=== PATIENT | male | born 1950 | race Asian ===

== ENCOUNTER 2016-10-29 20:56 | Observation (INO) | payer OTHER ==
[2016-10-29] MEDS ORDERED: SODIUM CHLORIDE 500 ML IV STA ×2 (21:37→23:50)
--- NOTE | 2016-10-29 21:58 | PDOC ---
History of Present Illness - History of Present Illness Initial Comments: 10/29/16 21:55 66M with history of prostate cancer, s/p surgery, chemo and radiation, with mets to lungs here today via EMS complaining of syncope. The patient was on the couch when he felt diaphoretic and nauseated before collapsing. EMS was called. Patient quickly returned to baseline. He did not have any tonic-clonic movements or tongue biting. He denies chest pain and shortness of breath. He denies recent travel, leg pain and hemoptysis. He does complain of constipation , with the last bowel movement being 3 days ago. His reports decreased PO intake. <Raymond Jones - Last Filed: 10/30/16 00:05> <Laya Gardiner - Last Filed: 10/30/16 04:14> - General Chief Complaint: Syncope/Near Syncope Stated Complaint: SYNCOPE Time Seen by Provider: 10/29/16 21:06 Past History - Past Medical History Anemia: No Asthma: No Cancer: Yes (prostate w/ METS to lungs) Cardiac Disorders: No CVA: No COPD: No CHF: No Dementia: No Diabetes: No GI Disorders: No Disorders: No HTN: No Hypercholesterolemia: No Liver Disease: No Seizures: No Thyroid Disease: No - Surgical History Orthopedic Surgery: No - Psycho/Social/Smoking Cessation Hx Suicidal Ideation: No Smoking History: Former smoker Have you smoked in the past 12 months: No If you are a former smoker, when did you quit?: 10yrs ago Information on smoking cessation initiated: No Hx Alcohol Use: No Drug/Substance Use Hx: No Substance Use Type: None <Raymond Jones - Last Filed: 10/30/16 00:05> <Laya Gardiner - Last Filed: 10/30/16 04:14> - Past Medical History Allergies/Adverse Reactions: Allergies Allergy/AdvReac Type Severity Reaction Status Date / Time No Known Drug Allergies Allergy Verified 01/07/12 07:26 Home Medications: Ambulatory Orders Chlorpromazine [Thorazine -] 25 mg PO BID PRN 10/29/16 Cisplatin [Platinol -] 100 mg IV ASDIR 10/29/16 Etoposide 10 mg IV ASDIR 10/29/16 Etoposide - 50 mg PO DAILY 10/29/16 Ondansetron HCl [Zofran] 8 mg PO QID PRN 10/29/16 Review of Systems - Review of Systems Comments:: 10/29/16 21:59 GENERAL/CONSTITUTIONAL: No fever or chills. No weakness. HEAD, EYES, EARS, NOSE AND THROAT: No change in vision. No ear pain or discharge. No sore throat. CARDIOVASCULAR: No chest pain or shortness of breath RESPIRATORY: No cough, wheezing, or hemoptysis. GASTROINTESTINAL: Positive for constipation and nausea GENITOURINARY: Positive for incontinence after prostate surgery. Negative for dysuria SKIN: No rash NEUROLOGIC: No headache, or change in strength/sensation. HEMATOLOGIC/LYMPHATIC: No anemia, easy bleeding, or history of blood clots. ALLERGIC/IMMUNOLOGIC: No hives or skin allergy. <Raymond Jones - Last Filed: 10/30/16 00:05> *Physical Exam - Vital Signs Last Vital Signs Temp Pulse Resp BP Pulse Ox 97.5 F L 90 18 136/80 99 10/29/16 21:05 10/29/16 21:05 10/29/16 21:05 10/29/16 21:05 10/29/16 21:05 - Physical Exam Comments: 10/29/16 22:00 GENERAL: Awake, alert, and fully oriented, in no acute distress HEAD: No signs of trauma, normocephalic, atraumatic EYES: PERRLA, EOMI, sclera anicteric, conjunctiva clear ENT: Auricles normal inspection, hearing grossly normal, nares patent, oropharynx clear without exudates. Dry mucosa LUNGS: No distress, speaks full sentences, clear to auscultation bilaterally HEART: Regular rate and rhythm, normal S1 and S2, no murmurs, rubs or gallops, peripheral pulses normal and equal bilaterally. ABDOMEN: Soft, nontender, normoactive bowel sounds. No guarding, no rebound. No masses EXTREMITIES: Normal inspection, Normal range of motion, no edema. No clubbing or cyanosis. NEUROLOGICAL: Cranial nerves II through XII grossly intact. Normal speech, no focal sensorimotor deficits SKIN: Warm, Dry, no rashes or lesions noted. <Raymond Jones - Last Filed: 10/30/16 00:05> - Vital Signs Last Vital Signs Temp Pulse Resp BP Pulse Ox 97.5 F L 95 H 18 138/80 99 10/29/16 21:05 10/29/16 22:21 10/29/16 21:05 10/29/16 22:01 10/29/16 22:21 <Laya Gardiner - Last Filed: 10/30/16 04:14> ED Treatment Course - LABORATORY CBC & Chemistry Diagram: 10/29/16 21:53 10/29/16 21:53 - RADIOLOGY Radiology Studies Ordered: Category Date Time Status CHEST CTA [CT] Stat CT Scan 10/29/16 21:37 Ordered CHEST X-RAY PORTABLE* [RAD] Stat Radiology 10/29/16 21:37 Ordered <Raymond Jones - Last Filed: 10/30/16 00:05> - LABORATORY CBC & Chemistry Diagram: 10/29/16 21:53 10/29/16 21:53 - ADDITIONAL ORDERS Additional order review: Laboratory Results 10/29/16 10/29/16 10/29/16 23:35 22:16 21:53 INR 1.06 Sodium 133 L Potassium 3.6 Chloride 95 L D Carbon Dioxide 27 Anion Gap 11 BUN 20 H D Creatinine 0.8 Creat Clearance w eGFR > 60 Random Glucose 116 H D Calcium 8.3 L Magnesium 2.0 Total Bilirubin 0.4 AST 16 ALT 23 Alkaline Phosphatase 93 Creatine Kinase 31 L Troponin I < 0.02 Total Protein 6.7 Albumin 3.2 L Urine Color Lt. yellow Urine Appearance Clear Urine pH 7.5 Urine Protein Negative Urine Glucose (UA) Negative Urine Ketones Negative Urine Blood Negative Urine Nitrite Negative Urine Bilirubin Negative Urine Urobilinogen 0.2 Ur Leukocyte Esterase Negative 10/29/16 21:53 RBC 4.09 MCV 90.9 MCHC 34.4 RDW 13.5 MPV 9.3 Neutrophils % Y Lymphocytes % Y - Medications Given in the ED: ED Medications Discontinued Medications Generic Name Dose Route Start Last Admin Trade Name Freq PRN Reason Stop Dose Admin Sodium Chloride 500 mls @ 500 mls/hr 10/29/16 21:37 10/29/16 22:01 Normal Saline - IV 10/29/16 22:36 500 mls/hr ASDIR STA Administration <Laya Gardiner - Last Filed: 10/30/16 04:14> Medical Decision Making - Medical Decision Making 10/29/16 22:01 Patient is a 66M with history of prostate cancer s/p chemo and radiation here today complaining of syncope. Vital signs stable, HR in 90s. Differential diagnosis includes, but is not limited to: PE, ACS, arrhythmia, dehydration. Will evaluate with CBC, CMP, CXR, trop, CTA, EKG. EKG shows QT= 485, left axis, no st elevations, normal sinus rhythm, HR 95. T wave inversions in aVL 10/29/16 22:22 CBC shows WBC of 25. CXR shows no acute cardiopulmonary process. Workup broadened with UA, UC and BC. 10/29/16 23:56 CTA Chest No PE. Extensive confluent mediastinal lymphadenopathy is identified. There is less prominent confluent right hilar lymphadenopathy. Due to mediastinal lymph node enlargement there is moderate to marked partial effacement of the left brachiocephalic vein adjacent to the junction with the superior vena cava as well as moderate to marked partial effacement of the upper half of the superior vena cava. Patient discussed with Dr Duran. Patient is taking neulasta, which explains the leukocytosis. Feels comfortable with discharge if SC, PE, PNA, and UTI ruled out. Trop neg. 10/29/16 23:58 CMP unremarkable: Laboratory Tests 10/29/16 21:53 Sodium 133 L Potassium 3.6 Chloride 95 L D Carbon Dioxide 27 Anion Gap 11 BUN 20 H D Creatinine 0.8 Creat Clearance w eGFR > 60 Random Glucose 116 H D Calcium 8.3 L Magnesium 2.0 Total Bilirubin 0.4 AST 16 ALT 23 Alkaline Phosphatase 93 Creatine Kinase 31 L Troponin I < 0.02 Total Protein 6.7 Albumin 3.2 L UA, lactate, pending. If normal anticipate discharge with follow up. Possible causes of syncope include, but are not limited to dehydration, and major vessel compression. Given additional 1L NS. Signed out to Dr Gardiner. <Raymond Jones - Last Filed: 10/30/16 00:05> - Medical Decision Making 10/30/16 02:33 Had been anticipating DC home, as no source of infection, leukocytosis was explained, and patient was appearing better. Syncope was considered likely possible to lymph node obstruction of flow through SVC. However, repeat lactate after 1.5L IV NSS increased. D/w Dr. Mcgowan, will place on observation. <Laya Gardiner - Last Filed: 10/30/16 04:14> *DC/Admit/Observation/Transfer <Raymond Jones - Last Filed: 10/30/16 00:05> - Discharge Dispostion Admit: Yes <Laya Gardiner - Last Filed: 10/30/16 04:14> Diagnosis at time of Disposition: Lactate blood increase, Dehydration Syncope Qualifiers: Syncope type: unspecified Qualified Code(s): R55 - Syncope and collapse - Discharge Dispostion Condition at time of disposition: Stable
--- NOTE | 2016-10-29 22:03 | PDOC ---
Attending Attestation - Resident Resident Name: RamanaRaymond berry - ED Attending Attestation I have performed the following: I have examined & evaluated the patient, The case was reviewed & discussed with the resident, I agree w/resident's findings & plan, Exceptions are as noted - HPI HPI: 66 yo M history prostate CA with mets to lung and lymph nodes presents with syncopal event. He states that he felt lightheaded, nauseated, and sweaty right beforehand, but denies cp, SOB. No recent leg swelling. He has had dec PO intake recently. No fever, chills. He complains of recent constipation. He is not taking any opioid pain medications. - Physicial Exam PE: GENERAL: Awake, alert, and fully oriented, in no acute distress HEAD: No signs of trauma EYES: PERRLA, EOMI, sclera anicteric, conjunctiva clear ENT: Auricles normal inspection, hearing grossly normal, nares patent, oropharynx clear without exudates. Dry mucosa NECK: Normal ROM, supple, no lymphadenopathy, JVD, or masses LUNGS: Breath sounds equal, clear to auscultation bilaterally. No wheezes, and no crackles HEART: Regular rate and rhythm, normal S1 and S2, no murmurs, rubs or gallops ABDOMEN: Soft, nontender, normoactive bowel sounds. No guarding, no rebound. No masses EXTREMITIES: Normal range of motion, no edema. No clubbing or cyanosis. No cords, erythema, or tenderness NEUROLOGICAL: Cranial nerves II through XII grossly intact. Normal speech. Motor and sensation intact. SKIN: Warm, Dry, normal turgor, no rashes or lesions noted. - Medical Decision Making See MDM in resident note for details.
[2016-10-29 22:04] LABS: MCH 31.2 pg (25.7-33.7); MCHC 34.4 g/dl (32.0-35.9); MEAN CELL VOLUME 90.9 fl (80-96); MEAN PLT VOLUME 9.3 fl (7.5-11.1); PLATELET COUNT 218 K/MM3 (134-434); RDW 13.5 % (11.9-15.9); WHITE BLOOD COUNT 25.2 K/mm3 (4.0-10.0)
[2016-10-29 22:44] LABS: ALBUMIN 3.2 g/dl (3.4-5.0); ANION GAP 11 (8-16); BILIRUBIN,TOTAL 0.4 mg/dL (0.2-1.0); CALCIUM 8.3 mg/dL (8.5-10.1); CO2 27 mmol/L (21-32); CREATININE 0.8 mg/dL (0.7-1.3); GLUCOSE,RANDOM 116 mg/dL (74-106); SGOT/AST 16 U/L (15-37); SGPT/ALT 23 U/L (12-78); TOT PROT 6.7 g/dl (6.4-8.2)
[2016-10-29 22:46] LABS: ALK PHOS 93 U/L (45-117); CPK 31 IU/L (39-308); TROPONIN I < 0.02 ng/ml (0.00-0.05)
[2016-10-29 23:17] LABS: PLATELET ESTIMATE ADEQUATE (NORMAL)
[2016-10-29] MEDS ORDERED: MAGNESIUM CITRATE 300 ML BOTTLE PO ONE (23:49)
[2016-10-29] MEDS ORDERED: SODIUM CHLORIDE 1,000 ML IV STA (23:51)
[2016-10-30 00:02] LABS: PH,URINE 7.5 (5.0-8.0); URINE APPEARANCE CLEAR; URINE BILIRUBIN NEGATIVE (NEGATIVE); URINE BLOOD NEGATIVE (NEGATIVE); URINE COLOR LT. YELLOW; URINE GLUCOSE (UA) NEGATIVE (NEGATIVE); URINE KETONE NEGATIVE (NEGATIVE); URINE LEUK ESTERASE NEGATIVE (NEGATIVE); URINE NITRITE NEGATIVE (NEGATIVE); URINE PROTEIN NEGATIVE (NEGATIVE); URINE UROBILINOGEN 0.2 mg/dL (0.2-1.0)
[2016-10-30 00:06] LABS: INR 1.06 (0.82-1.09); PROTHROMBIN TIME (PATIENT) 11.7 SEC (9.98-11.88)
[2016-10-30] MEDS ORDERED: MAGNESIUM CITRATE 300 ML BOTTLE ONE (00:40)
[2016-10-30] MEDS ORDERED: SODIUM CHLORIDE 1,000 ML IV SCH (02:45)
[2016-10-30] MEDS ORDERED: ONDANSETRON 8 MG TABLET (FP) PO PRN (07:44)
[2016-10-30 08:54] LABS: MCH 30.7 pg (25.7-33.7); MEAN CELL VOLUME 90.4 fl (80-96); MEAN PLT VOLUME 9.6 fl (7.5-11.1); PLATELET COUNT 206 K/MM3 (134-434); RDW 13.3 % (11.9-15.9)
[2016-10-30 09:06] LABS: WHITE BLOOD COUNT 30.6 K/mm3 (4.0-10.0)
[2016-10-30 09:52] LABS: ALBUMIN 3.1 g/dl (3.4-5.0); ANION GAP 10 (8-16); BILIRUBIN,TOTAL 0.6 mg/dL (0.2-1.0); CALCIUM 8.4 mg/dL (8.5-10.1); CO2 25 mmol/L (21-32); CREATININE 0.7 mg/dL (0.7-1.3); GLUCOSE,RANDOM 111 mg/dL (74-106); MAGNESIUM 2.2 mg/dL (1.8-2.4); SGOT/AST 16 U/L (15-37); SGPT/ALT 21 U/L (12-78); TOT PROT 6.4 g/dl (6.4-8.2)
[2016-10-30 09:53] LABS: ALK PHOS 101 U/L (45-117); TROPONIN I < 0.02 ng/ml (0.00-0.05)
[2016-10-30] MEDS ORDERED: ENOXAPARIN NA (PORCINE) 40 MG/0.4 ML DISP.SYRIN SQ SCH (10:00)
[2016-10-30] MEDS ORDERED: ETOPOSIDE PO SCH (10:00)
[2016-10-30] MEDS ORDERED: DEXTROSE 5%-0.45% SALINE 1,000 ML IV ONE (10:19)
[2016-10-30 11:22] LABS: PLATELET ESTIMATE ADEQUATE (NORMAL); TOTAL CELLS COUNTED 100
--- NOTE | 2016-10-30 11:43 | EKG ---
Test Reason : Blood Pressure : / mmHG Vent. Rate : 095 BPM Atrial Rate : 095 BPM P-R Int : 144 ms QRS Dur : 084 ms QT Int : 386 ms P-R-T Axes : 075 -32 064 degrees QTc Int : 485 ms NORMAL SINUS RHYTHM POSSIBLE LEFT ATRIAL ENLARGEMENT LEFT AXIS DEVIATION RSR' PROLONGED QT ABNORMAL ECG WHEN COMPARED WITH ECG OF 28-JAN-2004 22:30, QT HAS LENGTHENED Confirmed by SHEIKH OMER, CHARLOTTE ([id number]) on 10/30/2016 11:43:38 AM Referred By: Confirmed By:CHARLOTTE RENAE MD
--- NOTE | 2016-10-30 12:01 | EKG ---
Test Reason : Blood Pressure : / mmHG Vent. Rate : 093 BPM Atrial Rate : 093 BPM P-R Int : 136 ms QRS Dur : 078 ms QT Int : 384 ms P-R-T Axes : 071 -25 062 degrees QTc Int : 477 ms NORMAL SINUS RHYTHM LEFT ATRIAL ENLARGEMENT WHEN COMPARED WITH ECG OF 29-OCT-2016 21:11, NO SIGNIFICANT CHANGE WAS FOUND Confirmed by CHARLOTTE RENAE MD ([id number]) on 10/30/2016 12:00:45 PM Referred By: Confirmed By:CHARLOTTE RENAE MD
[2016-10-30 12:16] LABS: PHOSPHOROUS 2.1 mg/dL (2.5-4.9); URIC ACID 3.3 mg/dL (2.6-7.2)
[2016-10-30 15:22] VITALS: BMI 23.6
[2016-10-30] MEDS: DEXTROSE 5%-0.45% SALINE 1,000 ML IV SCH (17:13)
[2016-10-30] MEDS: THIAMINE HCL 100 MG TABLET (FP) PO SCH (18:36)
[2016-10-31] MEDS: DEXTROSE 5%-0.45% SALINE 1,000 ML IV SCH (04:22)
[2016-10-31 08:31] LABS: EOSINOPHIL 0.5 % (0-4.5); MCH 30.9 pg (25.7-33.7); MCHC 33.9 g/dl (32.0-35.9); MEAN CELL VOLUME 91.3 fl (80-96); MEAN PLT VOLUME 9.7 fl (7.5-11.1); NEUTROPHILS 97.2 % (42.8-82.8); PLATELET COUNT 187 K/MM3 (134-434); RDW 13.2 % (11.9-15.9); WHITE BLOOD COUNT 25.9 K/mm3 (4.0-10.0)
[2016-10-31 09:17] LABS: ALBUMIN 3.1 g/dl (3.4-5.0); ALK PHOS 135 U/L (45-117); ANION GAP 13 (8-16); BILIRUBIN,TOTAL 0.8 mg/dL (0.2-1.0); CALCIUM 8.4 mg/dL (8.5-10.1); CO2 23 mmol/L (21-32); CREATININE 0.6 mg/dL (0.7-1.3); GLUCOSE,RANDOM 143 mg/dL (74-106); SGOT/AST 20 U/L (15-37); SGPT/ALT 21 U/L (12-78); TOT PROT 6.5 g/dl (6.4-8.2)
[2016-10-31] MEDS: THIAMINE HCL 100 MG TABLET (FP) PO SCH (09:31)
--- NOTE | 2016-10-31 11:36 | HP ---
Admitting History and Physical - Primary Care Physician PCP: Chucho Mcgowan - Admission Chief Complaint: Passed out History of Present Illness: 66 yrs old man H/O CA prostate recurrence r with mets in Lung s and Hilar Lymphadenopathy, patient received Ist Cycle of chemotherapy on Tuesday, Tuesday and , , on Tuesday received Neupogen, patient has been having poor PO intake with nausea, GERD symptoms and Hiccoughs, on Tuesday night felt dizzy, nauseated and passed out for few seconds witnesses by the , no seizures activity, no bowel bladder incontinence, no chest pain SOB or Palpitation, before or after the episode, BIB to Ed for evaluation, patient was found clinically dehydrated with elevated BUN Creatnine admitted for close observation, As per patient patient had extensive Cardiac w/u fw wks ago underwent negative NST and ECHO, on Hospitalization CT chest is -ve for PE, no c/o dysuria, fever, chills, cough or worsening SOB History Source: Patient Limitations to Obtaining History: No Limitations - Past Medical History Heme/Onc: Yes: Cancer (Prostate), Current Chemotherapy - Past Surgical History Past Surgical History: Yes: Prostatectomy - Smoking History Smoking history: Former smoker Have you smoked in the past 12 months: No If you are a former smoker, when did you quit?: 10yrs ago - Alcohol/Substance Use Hx Alcohol Use: No - Social History ADL: Independent History of Recent Travel: No Home Medications - Allergies Allergies/Adverse Reactions: Allergies Allergy/AdvReac Type Severity Reaction Status Date / Time No Known Drug Allergies Allergy Verified 10/30/16 06:52 - Home Medications Home Medications: Ambulatory Orders Chlorpromazine [Thorazine -] 25 mg PO BID PRN 10/29/16 Ondansetron HCl [Zofran] 8 mg PO QID PRN 10/29/16 Metoclopramide HCl [Reglan -] 10 mg PO TIDAC #45 tablet 10/31/16 Pantoprazole Sodium [Protonix -] 40 mg PO DAILY #30 cap 10/31/16 Thiamine HCl [Vitamin B1 -] 100 mg PO DAILY #100 tablet 10/31/16 Family Disease History - Family Disease History Family Disease History: Heart Disease: Mother (HTN) Review of Systems - Review of Systems Constitutional: reports: Loss of Appetite, Malaise, Unintentional Wgt. Loss Eyes: reports: No Symptoms HENT: reports: No Symptoms Neck: reports: No Symptoms Cardiovascular: denies: Chest Pain, Edema, Palpitations Respiratory: reports: No Symptoms. denies: Cough, Exercise Intolerance Gastrointestinal: reports: Bloating, Constipation, Nausea Genitourinary: reports: No Symptoms. denies: Burning, Discharge Musculoskeletal: reports: No Symptoms. denies: Back Pain Neurological: reports: No Symptoms, Change in LOC Endocrine: denies: Excessive Sweating, Flushing Hematology/Lymphatic: denies: Easily Bruised, Excessive Bleeding Psychiatric: reports: No Symptoms Physical Examination Vital Signs: Vital Signs Temperature 98.0 F 10/30/16 09:00 Pulse Rate 98 H 10/30/16 09:00 Respiratory Rate 20 10/30/16 09:00 Blood Pressure 150/78 10/30/16 09:00 O2 Sat by Pulse Oximetry (%) 100 10/30/16 10:20 Elderly man sick looking looks anxious, not in acute distress HEENT: Mm moist, no anemia, PERRLA EOMI NECK; No JVd No Bruit CHEST: CTA B/L CVS: s1S2 R no murmur ABD: No distention mild epigastric tenderness BS + EXT: No yao afeet, no calf tenderness 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; AOx3 non focal Labs: CBC, BMP 10/30/16 07:38 10/30/16 07:38 Imaging - Results Cat Scan: Report Reviewed (Scar shows B/L Hilar adnopathy with intersitial dises no PE) EKG: Report Reviewed (NSR at [address] changes) Problem List - Problems (1) Dehydration Assessment/Plan: Iv Hydration F/Iu BMP Code(s): E86.0 - DEHYDRATION (2) Lactate blood increase Assessment/Plan: Due to malignancy no AG no clinical sign of infection F/UCultures Code(s): R79.89 - OTHER SPECIFIED ABNORMAL FINDINGS OF BLOOD CHEMISTRY (3) Syncope Assessment/Plan: Due to dehydration and mailise, normal EKG, no cardiac symptoms -ve Trop recent NST and ECHO are normal, educated Hydration and postural training. Code(s): R55 - SYNCOPE AND COLLAPSE Qualifiers: Syncope type: unspecified Qualified Code(s): R55 - Syncope and collapse (4) GERD (gastroesophageal reflux disease) Assessment/Plan: Add PPI and Metclopramide Code(s): K21.9 - GASTRO-ESOPHAGEAL REFLUX DISEASE WITHOUT ESOPHAGITIS Qualifiers: Esophagitis presence: with esophagitis Qualified Code(s): K21.0 - Gastro-esophageal reflux disease with esophagitis
--- NOTE | 2016-10-31 11:46 | DS ---
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; AOx3 non focal Constitutional: Yes: Well Nourished, No Distress, Calm Eyes: Yes: WNL, Conjunctiva Clear, EOM Intact HENT: Yes: WNL, Atraumatic, Normocephalic Neck: Yes: WNL, Supple, Trachea Midline Cardiovascular: Yes: WNL, Regular Rate and Rhythm Respiratory: Yes: WNL, Regular, CTA Bilaterally Gastrointestinal: Yes: WNL, Normal Bowel Sounds Musculoskeletal: Yes: WNL Extremities: Yes: WNL Edema: No Integumentary: Yes: WNL Neurological: Yes: WNL, Alert, Oriented ...Motor Strength: WNL Psychiatric: Yes: WNL Labs: CBC, BMP 10/31/16 07:38 10/31/16 07:38 Discharge Summary Reason For Visit: SYNCOPE,INCREASED LACTIC ACID LEVEL Current Active Problems Dehydration (Acute) GERD (gastroesophageal reflux disease) (Acute) Lactate blood increase (Acute) Syncope (Acute) Condition: Stable - Instructions Referrals: Chucho Mcgowan MD [Staff Physician] - 1 Week Jesús Lind [Non Staff, Medical] - 1 Week - Home Medications Comprehensive Discharge Medication List: Ambulatory Orders Chlorpromazine [Thorazine -] 25 mg PO BID PRN 10/29/16 Ondansetron HCl [Zofran] 8 mg PO QID PRN 10/29/16 Metoclopramide HCl [Reglan -] 10 mg PO TIDAC #45 tablet 10/31/16 Pantoprazole Sodium [Protonix -] 40 mg PO DAILY #30 cap 10/31/16 Thiamine HCl [Vitamin B1 -] 100 mg PO DAILY #100 tablet 10/31/16
[2016-10-31] MEDS ORDERED: PANTOPRAZOLE SODIUM 40 MG VIAL ONE (12:23)
[2016-10-31] MEDS ORDERED: SODIUM CHLORIDE 100 ML IVPB ONE (12:24)
[2016-10-31] MEDS ORDERED: PANTOPRAZOLE SODIUM 40 MG in SODIUM CHLORIDE 100 ML IVPB ONE (12:45)
[2016-10-31 13:57] VITALS: BP 142/77; PULSE 97; TEMP 98.1
[2016-10-31] MEDS ORDERED: METOCLOPRAMIDE HCL 10 MG TABLET (FP) PO SCH (16:30)
[2016-11-01] MEDS ORDERED: PANTOPRAZOLE 40 MG TABLET (FP) PO SCH (10:00)
== END 2016-10-31 15:39 | disposition home or self-care (01) ==
LOC: JER 20:56 → JERBED 10-30 02:33 → J5S 10-30 11:40
PROVIDERS: ADMIT Internal Medicine; ATTEND Internal Medicine
PROC: 3E033GC Introduction of Other Therapeutic Substance into Peripheral Vein, Percutaneous Approach (ICD-10-PCS; principal; 2016-10-30)
PROC: 3E0337Z Introduction of Electrolytic and Water Balance Substance into Peripheral Vein, Percutaneous Approach (ICD-10-PCS; 2016-10-30)
DX: E86.0 Dehydration (principal); R74.0 Nonspecific elevation of levels of transaminase and lactic acid dehydrogenase [LDH]; C61 Malignant neoplasm of prostate; C78.00 Secondary malignant neoplasm of unspecified lung; Z92.21 Personal history of antineoplastic chemotherapy; Z92.3 Personal history of irradiation; Z87.891 Personal history of nicotine dependence; Z90.79 Acquired absence of other genital organ(s); R55 Syncope and collapse; K21.0 Gastro-esophageal reflux disease with esophagitis
CPT/HCPCS: 36415; 71010-TC; 71275-TC; 80053; 81003; 83036; 83605; 83735; 84100; 84484; 84550; 85025; 85610; 87040; 87086; 93005; 93010; 99285-25; G0378

== ENCOUNTER 2017-08-01 13:55 | Emergency (ER) | payer OTHER ==
[2017-08-01 14:12] VITALS: TEMP 97.6; BMI 24.4
--- NOTE | 2017-08-01 14:25 | PDOC ---
History of Present Illness - General Chief Complaint: Pain, Acute Stated Complaint: LEFT HIP PAIN Time Seen by Provider: 08/01/17 14:25 - History of Present Illness Initial Comments: 08/01/17 16:56 Mr. Gipson is a 67 yo male w/ pmh of prostate CA with mets to lungs s/p surgery and radiation; currently undergoing chemotherapy every 3 weeks (currently at the start of week 3), who presents for evaluation of left lower extremity pain with sudden onset this morning. He reports he was in his normal state of health until pain started suddenly at around 9am from his left thigh to his left lower leg. He reports he was sitting in place watching tv without moving for approximately 5 hours last night as well. The patient denies chest pain, shortness of breath, headache and dizziness. Denies fever, chills, nausea, vomit, diarrhea and constipation. Denies dysuria, frequency, urgency and hematuria. Allergies: NKDA Past History - Past Medical History Allergies/Adverse Reactions: Allergies Allergy/AdvReac Type Severity Reaction Status Date / Time No Known Drug Allergies Allergy Verified 08/01/17 14:08 Home Medications: Ambulatory Orders Ondansetron HCl [Zofran] 8 mg PO QID PRN 10/29/16 Cyclobenzaprine HCl [Flexeril 10 mg] 10 mg PO Q8H PRN #21 tablet 08/01/17 Naproxen 500 mg PO BID PRN #20 tablet 08/01/17 Anemia: No Asthma: No Cancer: Yes (prostate w/ METS to lungs &liver) Cardiac Disorders: No CVA: No COPD: No CHF: No Dementia: No Diabetes: No GI Disorders: No Disorders: No HTN: No Hypercholesterolemia: No Liver Disease: No Seizures: No Thyroid Disease: No Other medical history: glaucoma - Surgical History Abdominal Surgery: Yes (LEFT SIDED HERNIA 2012) Orthopedic Surgery: No - Suicide/Smoking/Psychosocial Hx Smoking History: Former smoker Have you smoked in the past 12 months: No If you are a former smoker, when did you quit?: 10yrs ago Information on smoking cessation initiated: No Hx Alcohol Use: No Drug/Substance Use Hx: No Substance Use Type: None Hx Substance Use Treatment: No Review of Systems - Review of Systems Comments:: 08/01/17 16:59 GENERAL/CONSTITUTIONAL: No fever or chills. No weakness. HEAD, EYES, EARS, NOSE AND THROAT: No change in vision. No ear pain or discharge. No sore throat. CARDIOVASCULAR: No chest pain or shortness of breath RESPIRATORY: No cough, wheezing, or hemoptysis. GASTROINTESTINAL: No nausea, vomiting, diarrhea or constipation. GENITOURINARY: No dysuria, frequency, or change in urination. MUSCULOSKELETAL: +Left lower extremity pain as described. No neck or back pain. SKIN: No rash NEUROLOGIC: No headache, vertigo, loss of consciousness, or change in strength/ sensation. ENDOCRINE: No increased thirst. No abnormal weight change HEMATOLOGIC/LYMPHATIC: No anemia, easy bleeding, or history of blood clots. ALLERGIC/IMMUNOLOGIC: No hives or skin allergy. *Physical Exam - Vital Signs Last Vital Signs Temp Pulse Resp BP Pulse Ox 97.6 F 98 H 19 140/82 100 08/01/17 14:08 08/01/17 14:08 08/01/17 14:08 08/01/17 14:08 08/01/17 14:08 - Physical Exam Comments: 08/01/17 17:00 GENERAL: Awake, alert, and fully oriented, in no acute distress HEAD: No signs of trauma, normocephalic, atraumatic EYES: PERRLA, EOMI, sclera anicteric, conjunctiva clear ENT: Auricles normal inspection, hearing grossly normal, nares patent, oropharynx clear without exudates. Moist mucosa NECK: Normal ROM, supple, no lymphadenopathy, JVD, or masses LUNGS: No distress, speaks full sentences, clear to auscultation bilaterally HEART: Regular rate and rhythm, normal S1 and S2, no murmurs, rubs or gallops, peripheral pulses normal and equal bilaterally. ABDOMEN: Soft, nontender, normoactive bowel sounds. No guarding, no rebound. No masses EXTREMITIES: Normal inspection, Normal range of motion, no edema. No clubbing or cyanosis. NEUROLOGICAL: Cranial nerves II through XII grossly intact. Normal speech, normal gait, no focal sensorimotor deficits SKIN: Warm, Dry, normal turgor, no rashes or lesions noted. ED Treatment Course - LABORATORY CBC & Chemistry Diagram: 08/01/17 14:46 08/01/17 14:46 Medical Decision Making - Medical Decision Making 08/02/17 11:57 Mr. Gipson is a 67 yo male w/ pmh as described who presents for evaluation of hip pain. US ordered for DVT r/o was negative. Lower extremity CTA ordered for further evaluation also negative. Patient discharged for outpatient follow-up. *DC/Admit/Observation/Transfer Diagnosis at time of Disposition: Muscle cramp - Discharge Dispostion Disposition: HOME Condition at time of disposition: Stable - Prescriptions Prescriptions: Cyclobenzaprine HCl [Flexeril 10 mg] 10 mg PO Q8H PRN #21 tablet PRN Reason: Muscle Spasm Naproxen 500 mg PO BID PRN #20 tablet PRN Reason: Pain - Referrals Referrals: Chucho Mcgowan MD [Primary Care Provider] - - Patient Instructions Printed Discharge Instructions: DI for Musculoskeletal Pain Additional Instructions: Your ultrasound and CT scan of your left lower extremity is unremarkable. We will treat this as a muscle cramp. Take 500 mg naproxen every 12 hours as needed for pain. For muscle relaxant, you can take a tablet of flexeril every 8 hours as needed. This medication may make you drowsy so please do not drink or drive. Follow up with Dr. Mcgowan. - Post Discharge Activity
[2017-08-01] MEDS ORDERED: morphine SULFATE 4 MG/ML VIAL ONE (14:35)
[2017-08-01] MEDS ORDERED: ONDANSETRON 4 MG/2 ML VIAL ONE (14:35)
[2017-08-01] MEDS ORDERED: ONDANSETRON 4 MG/2 ML VIAL IVPB ONE (14:45)
[2017-08-01] MEDS ORDERED: morphine CARPU-JECT 4 MG/1 ML DISP.SYRIN IVPUSH ONE ×2 (14:45→15:19)
--- NOTE | 2017-08-01 14:55 | PDOC ---
Attending Attestation - Resident Resident Name: Jared Mullins - ED Attending Attestation I have performed the following: I have examined & evaluated the patient, The case was reviewed & discussed with the resident, I agree w/resident's findings & plan, Exceptions are as noted - Medical Decision Making 08/01/17 15:21 A portion of this note was written by my scribe, under my supervision. Vital Signs Temp Pulse Resp BP Pulse Ox 97.6 F 98 H 19 140/82 100 08/01/17 14:08 08/01/17 14:08 08/01/17 14:08 08/01/17 14:08 08/01/17 14:08 67-year-old male with history of prostate cancer p/w sudden onset left leg pain. The patient was sitting in his chair yesterday for several hours. Went to bed without symptoms. Woke up and was doing unremarkable until at 9 pm, started to feel pain in left inner thigh and calf. Denies any chest pain or SOB. Worsen with palpation. Denies any numbness, weakness. Denies trauma or injury. Denies back pain or history of sciatica. Pt was escorted here by Dr. Mcgowan. LLE duplex demonstrates no DVT. Pt has palpable distal pulses, so unlikely to be cold foot. However, could this be peipheral arterial disease and claudication? There also does not seem to be any bony tenderness. Will obtain a LLE CTA to evaluate LLE. Also not typical for sciatica. But will treat with pain medications and reach out to pt's PMD once results return. <Bryan Ely - Last Filed: 08/01/17 15:21> - HPI HPI: 08/01/17 15:40 The patient is a 67 year old male, with a significant past medical history of prostate cancer, s/p surgery, chemo and radiation, with mets to lungs, who presents to the emergency department with, sudden onset left leg pain. As per patient, his pain began 6 hours ago. He reports calling his PCP, Dr. Mcgowan, who advised him to take Aleve and Codeine and to report to the ED for further evaluation of his symptoms did not improve. The patient describes his pain within the ED as now confined to the anterior knee. He denies any recent fevers, chills, headache or dizziness. He denies any recent nausea, vomit, diarrhea or constipation. He denies any recent chest pain or shortness of breath. He denies any recent dysuria, frequency, urgency or hematuria. Allergies: NKA Social History: Former smoker (quit 10 years ago). Denies EtOH use and recreational drug use. Primary Care Physician: Dr. Chucho Mcgowan - Physicial Exam PE: 08/01/17 15:40 GENERAL: Awake, alert, and fully oriented, in no acute distress HEAD: No signs of trauma EXTREMITIES: Right knee: Negative Homans. 2+ DP. Sensation intact. Full ROM. Left knee: Normal without tenderness. Normal range of motion, no edema. No clubbing or cyanosis. No cords, erythema, or tenderness NEUROLOGICAL: Normal speech SKIN: Warm, Dry, normal turgor, no rashes or lesions noted. <Devaughn Blanton - Last Filed: 08/01/17 15:46> Attestations - Attestations 08/01/17 15:45 Documentation prepared by Devaughn Blanton, acting as vice president medical affairs for Bryan Ely MD. <Devaughn Blanton - Last Filed: 08/01/17 15:46>
[2017-08-01 15:01] LABS: BASO % 0.2 % (0-2.0); EOS % 0.1 % (0-4.5); HEMATOCRIT 33.9 % (35.4-49); HEMOGLOBIN 11.5 GM/dL (11.7-16.9); LYMPH % 9.3 % (8-40); MCH 33.6 pg (25.7-33.7); MCHC 33.8 g/dl (32.0-35.9); MEAN CELL VOLUME 99.3 fl (80-96); MEAN PLT VOLUME 9.2 fl (7.5-11.1); MONO % 7.8 % (3.8-10.2); NEUT % 82.6 % (42.8-82.8); PLATELET COUNT 136 K/MM3 (134-434); RBC 3.41 M/mm3 (4.00-5.60); RDW 14.4 % (11.9-15.9); WHITE BLOOD COUNT 11.6 K/mm3 (4.0-10.0)
[2017-08-01 15:18] LABS: INR 1.03 (0.82-1.09); PROTHROMBIN TIME (PATIENT) 11.6 SEC (9.7-13.0)
[2017-08-01 15:21] LABS: ACTIVATED PTT 26.9 SECONDS (26.9-34.4)
[2017-08-01] MEDS ORDERED: CYCLOBENZAPRINE HCL 10 MG TABLET (FP) PO ONE (15:22)
[2017-08-01 15:28] LABS: ALBUMIN 4.2 g/dl (3.4-5.0); ALK PHOS 131 U/L (45-117); ANION GAP 7 (8-16); BILIRUBIN,TOTAL 0.3 mg/dL (0.2-1.0); BLOOD UREA NITROGEN 12 mg/dL (7-18); CALCIUM 8.3 mg/dL (8.5-10.1); CHLORIDE 99 mmol/L (98-107); CO2 28 mmol/L (21-32); CREATININE 0.8 mg/dL (0.7-1.3); GLUCOSE,RANDOM 93 mg/dL (74-106); POTASSIUM 4.2 mmol/L (3.5-5.1); SGOT/AST 25 U/L (15-37); SGPT/ALT 33 U/L (12-78); SODIUM 134 mmol/L (136-145); TOT PROT 7.4 g/dl (6.4-8.2)
[2017-08-01] MEDS ORDERED: CYCLOBENZAPRINE HCL 10 MG TABLET (FP) ONE (15:31)
--- NOTE | 2017-08-01 18:08 | PDOC ---
*Physical Exam - Vital Signs Last Vital Signs Temp Pulse Resp BP Pulse Ox 97.6 F 98 H 19 140/82 100 08/01/17 14:08 08/01/17 14:08 08/01/17 14:08 08/01/17 14:08 08/01/17 14:08 ED Treatment Course - LABORATORY CBC & Chemistry Diagram: 08/01/17 14:46 08/01/17 14:46 - ADDITIONAL ORDERS Additional order review: Laboratory Results 08/01/17 08/01/17 08/01/17 14:46 14:46 14:46 PT with INR 11.60 INR 1.03 PTT (Actin FS) 26.9 Sodium 134 L Potassium 4.2 Chloride 99 Carbon Dioxide 28 D Anion Gap 7 L BUN 12 Creatinine 0.8 D Creat Clearance w eGFR > 60 Random Glucose 93 D Calcium 8.3 L Total Bilirubin 0.3 D AST 25 D ALT 33 D Alkaline Phosphatase 131 H Total Protein 7.4 Albumin 4.2 D Blood Type A NEGATIVE Antibody Screen Negative 08/01/17 14:46 RBC 3.41 L D MCV 99.3 H MCHC 33.8 RDW 14.4 MPV 9.2 Neutrophils % 82.6 Lymphocytes % 9.3 D Monocytes % 7.8 D Eosinophils % 0.1 Basophils % 0.2 D - Medications Given in the ED: ED Medications Discontinued Medications Generic Name Dose Route Start Last Admin Trade Name Freq PRN Reason Stop Dose Admin Cyclobenzaprine HCl 10 mg 08/01/17 15:22 08/01/17 15:34 Flexeril - PO 08/01/17 15:23 10 mg ONCE ONE Administration Morphine Sulfate 4 mg 08/01/17 14:45 08/01/17 14:46 Morphine Injection - IVPUSH 08/01/17 14:46 4 mg ONCE ONE Administration Morphine Sulfate 4 mg 08/01/17 15:19 08/01/17 15:34 Morphine Injection - IVPUSH 08/01/17 15:20 Not Given ONCE ONE Ondansetron HCl 4 mg 08/01/17 14:45 08/01/17 14:46 Zofran Injection IVPB 08/01/17 14:46 4 mg ONCE ONE Administration Medical Decision Making - Medical Decision Making 08/01/17 18:04 Duplex reviewed. No DVT CTA lower extremity shows patent vessels. Unremarkable workup. Labs reviewed. Pt feels significantly better after muscle relaxant. Will treat as muscle cramping. Pt feels comfortable going home. Dr. Mcgowan updated and he's comfortable without patient followup. *DC/Admit/Observation/Transfer Diagnosis at time of Disposition: Muscle cramp - Discharge Dispostion Disposition: HOME Condition at time of disposition: Stable Decision to Admit order: No - Prescriptions Prescriptions: Cyclobenzaprine HCl [Flexeril 10 mg] 10 mg PO Q8H PRN #21 tablet PRN Reason: Muscle Spasm Naproxen 500 mg PO BID PRN #20 tablet PRN Reason: Pain - Referrals Referrals: Chucho Mcgowan MD [Primary Care Provider] - - Patient Instructions Printed Discharge Instructions: DI for Musculoskeletal Pain Additional Instructions: Your ultrasound and CT scan of your left lower extremity is unremarkable. We will treat this as a muscle cramp. Take 500 mg naproxen every 12 hours as needed for pain. For muscle relaxant, you can take a tablet of flexeril every 8 hours as needed. This medication may make you drowsy so please do not drink or drive. Follow up with Dr. Mcgowan. - Post Discharge Activity
[2017-08-01 18:51] VITALS: BP 116/71; PULSE 89
[2017-08-02 01:14] LABS: ANISOCYTOSIS 1+; PLATELET ESTIMATE NORMAL
== END 2017-08-01 18:44 | disposition home or self-care (01) ==
LOC: JER 13:55
PROC: 3E033NZ Introduction of Analgesics, Hypnotics, Sedatives into Peripheral Vein, Percutaneous Approach (ICD-10-PCS; principal; 2017-08-01)
PROC: 3E033GC Introduction of Other Therapeutic Substance into Peripheral Vein, Percutaneous Approach (ICD-10-PCS; 2017-08-01)
DX: R25.2 Cramp and spasm (principal)
CPT/HCPCS: 36415; 75635-TC; 80053; 85025; 85610; 85730; 86850; 86900; 86901; 93971-TC; 99282-25

== ENCOUNTER 2017-09-21 17:19 | Inpatient (IN) | payer OTHER ==
[2017-09-21 17:38] VITALS: BMI 23.8
--- NOTE | 2017-09-21 18:27 | PDOC ---
History of Present Illness - General History Source: Patient Exam Limitations: No Limitations - History of Present Illness Initial Comments: 09/21/17 21:22 The patient 67-year-old male, with a past medical history of metastatic prostate cancer with lung and bone mets (currently on chemo every 3 weeks), who presents to the ED for left leg cramping and associated shortness of breath. The patient denies any fever, chills, nausea, vomiting, diarrhea, or abdominal pain. Denies any chest pain. Allergies: NKDA Surgical History: prostatectomy <Aaliyah King - Last Filed: 09/21/17 21:29> <Anai Jackson - Last Filed: 09/21/17 22:34> - General Chief Complaint: Pain Stated Complaint: LEFT LEG SPASM Time Seen by Provider: 09/21/17 18:09 Past History <Aaliyah King - Last Filed: 09/21/17 21:29> - Past Medical History Anemia: No Asthma: No Cancer: Yes (prostate w/ METS to lungs &liver) Cardiac Disorders: No CVA: No COPD: No CHF: No Dementia: No Diabetes: No GI Disorders: No Disorders: No HTN: No Hypercholesterolemia: No Liver Disease: No Seizures: No Thyroid Disease: No - Surgical History Abdominal Surgery: Yes (LEFT SIDED HERNIA 2011) Orthopedic Surgery: No - Suicide/Smoking/Psychosocial Hx Smoking History: Former smoker Have you smoked in the past 12 months: No If you are a former smoker, when did you quit?: 10yrs ago Information on smoking cessation initiated: No Hx Alcohol Use: No Drug/Substance Use Hx: No Substance Use Type: None Hx Substance Use Treatment: No <Anai Jackson - Last Filed: 09/21/17 22:34> - Past Medical History Allergies/Adverse Reactions: Allergies Allergy/AdvReac Type Severity Reaction Status Date / Time No Known Drug Allergies Allergy Verified 09/21/17 17:35 Home Medications: Ambulatory Orders Cyclobenzaprine HCl [Flexeril 10 mg] 10 mg PO Q8H PRN #21 tablet 08/01/17 Naproxen 500 mg PO BID PRN #20 tablet 08/01/17 Insulin Degludec [Tresiba Flextouch U-100] 40 unit SQ DAILY 09/21/17 Potassium Chloride [K-Dur -] 20 meq PO BID 09/21/17 Review of Systems - Review of Systems Able to Perform ROS?: Yes Comments:: 09/21/17 21:23 GENERAL/CONSTITUTIONAL: No fever or chills. No weakness. HEAD, EYES, EARS, NOSE AND THROAT: No change in vision. No ear pain or discharge. No sore throat. CARDIOVASCULAR: No chest pain or shortness of breath. RESPIRATORY: (+)Shortness of breath. No cough, wheezing, or hemoptysis. GASTROINTESTINAL: No nausea, vomiting, diarrhea or constipation. GENITOURINARY: No dysuria, frequency, or change in urination. MUSCULOSKELETAL: (+)Left leg cramping. No joint swelling or pain. No neck or back pain. SKIN: No rash NEUROLOGIC: No headache, vertigo, loss of consciousness, or change in strength/ sensation. ENDOCRINE: No increased thirst. No abnormal weight change. HEMATOLOGIC/LYMPHATIC: No anemia, easy bleeding, or history of blood clots. ALLERGIC/IMMUNOLOGIC: No hives or skin allergy. <Aaliyah King - Last Filed: 09/21/17 21:29> *Physical Exam - Vital Signs Last Vital Signs Temp Pulse Resp BP Pulse Ox 98.1 F 123 H 18 168/105 92 L 09/21/17 17:36 09/21/17 17:36 09/21/17 17:36 09/21/17 17:36 09/21/17 17:36 - Physical Exam Comments: 09/21/17 21:24 GENERAL: Awake, alert, and fully oriented, in no acute distress HEAD: No signs of trauma EYES: PERRLA, EOMI, sclera anicteric, conjunctiva clear ENT: (+)Dry, dehydrated. Auricles normal inspection, hearing grossly normal, nares patent, oropharynx clear without exudates. NECK: Normal ROM, supple, no lymphadenopathy, JVD, or masses LUNGS: (+)Mild conversational dyspnea. Breath sounds equal, clear to auscultation bilaterally. No wheezes, and no crackles HEART: Regular rate and rhythm, normal S1 and S2, no murmurs, rubs or gallops ABDOMEN: Soft, nontender, normoactive bowel sounds. No guarding, no rebound. No masses EXTREMITIES: Normal range of motion, no edema. No clubbing or cyanosis. No cords, erythema, or tenderness NEUROLOGICAL: Cranial nerves II through XII grossly intact. SKIN: (+)Skin tenting. Warm, no rashes or lesions noted <Aaliyah King - Last Filed: 09/21/17 21:29> - Vital Signs Last Vital Signs Temp Pulse Resp BP Pulse Ox 98.1 F 123 H 18 168/105 92 L 09/21/17 17:36 09/21/17 17:36 09/21/17 17:36 09/21/17 17:36 09/21/17 17:36 <Anai Jackson - Last Filed: 09/21/17 22:34> Heart Score/ECG Review - ECG Intrepretation Comment:: 09/21/17 21:37 sinus tach at 106, LVH, l axis, mild st depression lateral leads, abnl ekg <Anai Jackson - Last Filed: 09/21/17 22:34> ED Treatment Course - LABORATORY CBC & Chemistry Diagram: 09/21/17 19:30 09/21/17 19:30 - ADDITIONAL ORDERS Additional order review: Laboratory Results 09/21/17 09/21/17 09/21/17 19:30 19:30 19:30 Sodium 145 Potassium 2.3 L* D Chloride 99 Carbon Dioxide 36 H D Anion Gap 10 BUN 23 H Creatinine 0.6 L Creat Clearance w eGFR > 60 Random Glucose 220 H D Calcium 7.4 L Magnesium 1.3 L D Total Bilirubin 0.9 AST 162 H D ALT 141 H D Alkaline Phosphatase 175 H Creatine Kinase 259 Creatine Kinase Index 1.0 CK-MB (CK-2) 2.82 Troponin I < 0.02 Total Protein 5.2 L Albumin 2.8 L Urine Color Ltyellow Urine Appearance Clear Urine pH 7.0 Ur Specific Rewey 1.020 Urine Protein 1+ H Urine Glucose (UA) 3+ H Urine Ketones Negative Urine Blood Negative Urine Nitrite Negative Urine Bilirubin Negative Urine Urobilinogen Negative Ur Leukocyte Esterase Negative Urine WBC (Auto) <1 Urine RBC (Auto) 1 Blood Type Cancelled Antibody Screen Cancelled 09/21/17 19:30 RBC 2.88 L MCV 102.7 H MCHC 35.4 RDW 18.6 H MPV 10.2 D Neutrophils % 90.6 H Lymphocytes % 5.1 L D Monocytes % 4.1 Eosinophils % 0.0 Basophils % 0.2 - Medications Given in the ED: ED Medications Discontinued Medications Generic Name Dose Route Start Last Admin Trade Name Stuart PRN Reason Stop Dose Admin Fentanyl 50 mcg 09/21/17 20:31 09/21/17 20:35 Sublimaze Injection - IVPUSH 09/21/17 20:32 50 mcg ONCE ONE Administration Morphine Sulfate 2 mg 09/21/17 18:28 09/21/17 19:30 Morphine Injection - IVPUSH 09/21/17 18:29 2 mg ONCE ONE Administration Sodium Chloride 1,000 ml 09/21/17 18:28 09/21/17 19:30 Normal Saline - IV 09/21/17 18:29 1,000 ml ONCE ONE Administration <Aaliyah King - Last Filed: 09/21/17 21:29> - LABORATORY CBC & Chemistry Diagram: 09/21/17 19:30 09/21/17 19:30 <Anai Jackson - Last Filed: 09/21/17 22:34> Medical Decision Making - Critical Care Time Total Critical Care Time (minutes): 60 Critical Care Statement: The care of this patient involved high complexity decision making to prevent further life threatening deterioration of the patient 's condition and/or to evaluate & treat vital organ system(s) failure or risk of failure. - Medical Decision Making 09/21/17 19:02 a/p: 67yo male with metastatic prostate ca with lung and bone mets presents for cramping in L leg -dehydrated on exam -concern for poss electrolyte abnl from chemo vs dvt -will send labs, chem, duplex -cxr, ekg -will start ivf hydration -morphine ordered for pain 09/21/17 19:[address] Mcgowan who requests pt admitted to his service 09/21/17 22:33 pt with hypokalemia and hypomagnesemia will replace electrolytes 09/21/17 22:34 ultrasound negative for DVT family and patient updated on labs and imaging results 09/21/17 22:34 pt still with pain and elevated BP will remedicate <Anai Jackson - Last Filed: 09/21/17 22:34> *DC/Admit/Observation/Transfer - Attestations Scribe Attestion: 09/21/17 21:26 Documentation prepared by Aaliyah King, acting as medical insurance clerk for Anai Jackson DO. <Aaliyah King - Last Filed: 09/21/17 21:29> - Discharge Dispostion Decision to Admit order: Yes - Attestations Physician Attestion: 09/21/17 19:04 I, Dr. Anai Jackson DO, attest that this document has been prepared under my direction and personally reviewed by me in its entirety. I further attest, that it accurately reflects all work, treatment, procedures and medical decision -making performed by me. <Anai Jackson - Last Filed: 09/21/17 22:34> Diagnosis at time of Disposition: Leg pain, left, Dehydration, Hypokalemia, Hypomagnesemia - Discharge Dispostion Condition at time of disposition: Guarded
[2017-09-21] MEDS ORDERED: morphine CARPU-JECT 2 MG/1 ML DISP.SYRIN IVPUSH ONE (18:28)
[2017-09-21] MEDS ORDERED: SODIUM CHLORIDE 0.9% 1000 ML INFUS.BAG IV ONE ×2 (18:28→21:31)
[2017-09-21] MEDS ORDERED: MORPHINE SULFATE 2 MG/ML VIAL ONE (19:26)
[2017-09-21 20:28] LABS: URINE APPEARANCE CLEAR; URINE BILIRUBIN NEGATIVE (<2.0 mg/dL); URINE COLOR LTYELLOW; URINE GLUCOSE (UA) 3+ (NEGATIVE); URINE KETONE NEGATIVE (NEGATIVE); URINE LEUK ESTERASE NEGATIVE (NEGATIVE); URINE NITRITE NEGATIVE (NEGATIVE); URINE UROBILINOGEN NEGATIVE mg/dL (0.2-1.0)
[2017-09-21 20:32] LABS: URINE PROTEIN 1+ (NEGATIVE)
[2017-09-21 20:44] LABS: ALBUMIN 2.8 g/dl (3.4-5.0); ANION GAP 10 (8-16); BILIRUBIN,TOTAL 0.9 mg/dL (0.2-1.0); BLOOD UREA NITROGEN 23 mg/dL (7-18); CALCIUM 7.4 mg/dL (8.5-10.1); CHLORIDE 99 mmol/L (98-107); CO2 36 mmol/L (21-32); CREATININE 0.6 mg/dL (0.7-1.3); GLUCOSE,RANDOM 220 mg/dL (74-106); MAGNESIUM 1.3 mg/dL (1.8-2.4); SGOT/AST 162 U/L (15-37); SGPT/ALT 141 U/L (12-78); SODIUM 145 mmol/L (136-145); TOT PROT 5.2 g/dl (6.4-8.2)
[2017-09-21 20:47] LABS: ALK PHOS 175 U/L (45-117)
[2017-09-21 20:49] LABS: POTASSIUM 2.3 mmol/L (3.5-5.1)
[2017-09-21] MEDS ORDERED: POTASSIUM CHLORIDE TABS 20 MEQ TABLET.ER (FP) PO ONE ×2 (20:50→21:30)
[2017-09-21] MEDS ORDERED: MAGNESIUM SULF 50% (8.12 MEQ/2 ML-1 GM VIAL) IVPB ONE (20:51)
[2017-09-21 21:00] LABS: BASO % 0.2 % (0-2.0); HEMATOCRIT 29.6 % (35.4-49); HEMOGLOBIN 10.5 GM/dL (11.7-16.9); LYMPH % 5.1 % (8-40); MCH 36.3 pg (25.7-33.7); MCHC 35.4 g/dl (32.0-35.9); MEAN CELL VOLUME 102.7 fl (80-96); MEAN PLT VOLUME 10.2 fl (7.5-11.1); MONO % 4.1 % (3.8-10.2); NEUT % 90.6 % (42.8-82.8); PLATELET COUNT 52 K/MM3 (134-434); RBC 2.88 M/mm3 (4.00-5.60); RDW 18.6 % (11.9-15.9); WHITE BLOOD COUNT 4.5 K/mm3 (4.0-10.0)
[2017-09-21 21:22] LABS: INR 1.28 (0.82-1.09); PROTHROMBIN TIME (PATIENT) 14.5 SEC (9.7-13.0)
[2017-09-21 21:24] LABS: ACTIVATED PTT 24.1 SECONDS (25.2-36.5)
[2017-09-21] MEDS ORDERED: oxyCODONE HCL 5 MG TABLET ONE (21:26)
[2017-09-21] MEDS ORDERED: oxyCODONE HCL 5 MG TABLET PO ONE (21:31)
[2017-09-21] MEDS ORDERED: KETOROLAC TROMETHAMINE 30 MG/1 ML VIAL IVPUSH ONE (21:43)
[2017-09-21] MEDS ORDERED: ACETAMINOPHEN 1000 MG/100 ML VIAL (NON FORMULARY) IVPB ONE (21:43)
[2017-09-21] MEDS ORDERED: KETOROLAC TROMETHAMINE 30 MG/1 ML VIAL ONE (21:44)
[2017-09-21] MEDS ORDERED: ACETAMINOPHEN INJECTION 100 ML IVPB ONE (21:44)
[2017-09-21] MEDS ORDERED: morphine CARPU-JECT 4 MG/1 ML DISP.SYRIN IVPUSH ONE (22:36)
[2017-09-21] MEDS ORDERED: morphine SULFATE 4 MG/ML VIAL ONE (22:38)
[2017-09-21] MEDS ORDERED: KCL 10 MEQ IVPB 10 MEQ/100 ML INFUS.BAG IVPB ONE (22:38)
[2017-09-21] MEDS: KCL 10 MEQ IVPB 10 MEQ/100 ML INFUS.BAG IVPB SCH (22:49)
[2017-09-22] MEDS: KCL 10 MEQ IVPB 10 MEQ/100 ML INFUS.BAG IVPB SCH ×2 (01:20→02:38)
[2017-09-22] MEDS ORDERED: oxyCODONE/APAP 1 EACH - MUST ORDER COMBO PRODUCT NR ONE (09:09)
[2017-09-22] MEDS ORDERED: ceFAZolin SODIUM 1 GM VIAL ONE ×2 (10:14→17:21)
[2017-09-22] MEDS ORDERED: DEXTROSE 5%-WATER - 50 ML IVPB ONE ×2 (10:15→17:22)
[2017-09-22] MEDS: ENOXAPARIN NA (PORCINE) 30 MG/0.3 ML DISP.SYRIN SQ SCH ×2 (10:20→21:14)
[2017-09-22] MEDS: CEFAZOLIN 1 GM in DEXTROSE 5%-WATER - 50 ML IVPB SCH ×2 (10:20→17:52)
[2017-09-22] MEDS: POTASSIUM CHLORIDE ORAL LIQUID 20 MEQ/15 ML PO SCH ×2 (10:20→21:16)
[2017-09-22] MEDS ORDERED: MORPHINE SULFATE 2 MG/ML VIAL IVPUSH PRN (10:49)
[2017-09-22] MEDS ORDERED: oxyCODONE HCL 5 MG TABLET PO PRN (10:50)
[2017-09-22 10:56] LABS: ALBUMIN 2.8 g/dl (3.4-5.0); ANION GAP 6 (8-16); BLOOD UREA NITROGEN 16 mg/dL (7-18); CHLORIDE 101 mmol/L (98-107); CO2 35 mmol/L (21-32); CREATININE 0.4 mg/dL (0.7-1.3); GLUCOSE,RANDOM 156 mg/dL (74-106); SGOT/AST 181 U/L (15-37); SGPT/ALT 133 U/L (12-78); SODIUM 142 mmol/L (136-145)
[2017-09-22 10:57] LABS: ALK PHOS 173 U/L (45-117); BILIRUBIN,TOTAL 1.2 mg/dL (0.2-1.0); TOT PROT 5.3 g/dl (6.4-8.2)
[2017-09-22] MEDS ORDERED: INSULIN SLIDING SCALE (NOVOLOG) 1 VIAL SQ SCH (11:00)
[2017-09-22 11:02] LABS: CALCIUM 6.5 mg/dL (8.5-10.1); POTASSIUM 2.7 mmol/L (3.5-5.1)
[2017-09-22] MEDS ORDERED: PT OWN MED DRAWER 7, Y5N ONE (13:51)
[2017-09-22] MEDS: POTASSIUM CHLORIDE 10 MEQ in SODIUM CHLORIDE 100 ML IVPB SCH ×3 (13:52→16:49)
[2017-09-22] MEDS: INSULIN SLIDING SCALE (NOVOLOG) 1 VIAL SQ SCH ×2 (14:12→16:58)
--- NOTE | 2017-09-22 14:29 | EKG ---
Test Reason : Blood Pressure : / mmHG Vent. Rate : 106 BPM Atrial Rate : 106 BPM P-R Int : 116 ms QRS Dur : 076 ms QT Int : 346 ms P-R-T Axes : 045 -39 -01 degrees QTc Int : 459 ms POOR DATA QUALITY, INTERPRETATION MAY BE ADVERSELY AFFECTED SINUS TACHYCARDIA LEFT AXIS DEVIATION MODERATE VOLTAGE CRITERIA FOR LVH, MAY BE NORMAL VARIANT NONSPECIFIC ST AND T WAVE ABNORMALITY ABNORMAL ECG WHEN COMPARED WITH ECG OF 04-AUG-2017 15:51, ST NOW DEPRESSED IN LATERAL LEADS NONSPECIFIC T WAVE ABNORMALITY NOW EVIDENT IN INFERIOR LEADS Confirmed by MALACHI KRISHNAN MD ([id number]) on 09/22/2017 2:29:22 PM Referred By: Confirmed By:MALACHI KRISHNAN MD
--- NOTE | 2017-09-22 19:54 | CONSULT ---
Consult Consult Specialty:: Oncology Referred by:: Dr Mcgowan Reason for Consultation:: History of prostate ca;. 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) Heme/Onc: Yes: Thrombocytopenia, Other (chemoembolization of liver) - Past Surgical History Past Surgical History: Yes: Prostatectomy - Alcohol/Substance Use Hx Alcohol Use: No - Smoking History Smoking history: Former smoker Have you smoked in the past 12 months: No If you are a former smoker, when did you quit?: 10yrs ago - Social History ADL: Independent History of Recent Travel: No Home Medications - Allergies Allergies/Adverse Reactions: Allergies Allergy/AdvReac Type Severity Reaction Status Date / Time No Known Drug Allergies Allergy Verified 09/21/17 17:35 - Home Medications Home Medications: Ambulatory Orders Cyclobenzaprine HCl [Flexeril 10 mg] 10 mg PO Q8H PRN #21 tablet 08/01/17 Naproxen 500 mg PO BID PRN #20 tablet 08/01/17 Insulin Degludec [Tresiba Flextouch U-100] 40 unit SQ DAILY 09/21/17 Potassium Chloride [K-Dur -] 20 meq PO BID 09/21/17 Family Disease History - Family Disease History Family Disease History: Heart Disease: Mother (HTN) Review of Systems - Review of Systems Constitutional: reports: Loss of Appetite, Weakness. denies: Chills, Fever, Night Sweats Eyes: denies: Blurred Vision, Double Vision, Recent Change in Vision HENT: reports: Difficult Swallowing. denies: Throat Pain Neck: denies: Lumps, Stiffness, Tenderness Cardiovascular: reports: Shortness of Breath. denies: Chest Pain Respiratory: reports: SOB on Exertion Gastrointestinal: reports: Constipation. denies: Bloating, Diarrhea, Dysphagia , Melena, Nausea, Rectal Bleeding, Vomiting Genitourinary: reports: Incontinence Musculoskeletal: reports: Other (LLE cramps) Integumentary: denies: Bruising, Eczema, Erythema Neurological: denies: Confusion, Numbness, Parasthesia Endocrine: reports: No Symptoms Hematology/Lymphatic: denies: Excessive Bleeding, Swollen Glands Psychiatric: reports: No Symptoms Physical Exam Vital Signs: Vital Signs Temperature 98.1 F 09/22/17 17:49 Pulse Rate 113 H 09/22/17 17:49 Respiratory Rate 18 09/22/17 17:49 Blood Pressure 154/94 09/22/17 17:49 O2 Sat by Pulse Oximetry (%) 100 09/22/17 09:00 Constitutional: Yes: Mild Distress Eyes: Yes: PERRL. No: Diplopia, Ptosis, Sclera Icterus HENT: No: Pharyngeal Erythema, Rhinnorhea, Thrush, Tonsillar Exudate Neck: Yes: Supple, Trachea Midline. No: Decreased ROM, Lymphadenopathy, Thyromegaly Cardiovascular: Yes: Regular Rate and Rhythm Respiratory: Yes: Regular, CTA Bilaterally Gastrointestinal: Yes: Normal Bowel Sounds, Soft Renal/: No: CVA Tenderness - Left, CVA Tenderness - Right Musculoskeletal: Yes: Muscle Pain, Muscle Weakness. No: Back Pain Extremities: No: Calf Tenderness, Deformity Edema: No Integumentary: No: Jaundice Neurological: Yes: WNL ...Motor Strength: WNL Psychiatric: Yes: WNL Labs: CBC, BMP 09/21/17 19:30 09/22/17 10:00 Imaging - Results Chest X-ray: Report Reviewed, Image Reviewed Problem List - Problems (1) Hypomagnesemia Assessment/Plan: Replete Code(s): E83.42 - HYPOMAGNESEMIA (2) Hypokalemia Assessment/Plan: Replete Code(s): E87.6 - HYPOKALEMIA (3) Dehydration Code(s): E86.0 - DEHYDRATION (4) Muscle cramp Code(s): R25.2 - CRAMP AND SPASM (5) Prostate CA Assessment/Plan: S/P prostatectomy Treated with taxotere chemotherapy and hormonal therapy PSA currently <1 Unfortunately , incontinent post prostatectomy Code(s): C61 - MALIGNANT NEOPLASM OF PROSTATE (6) 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 Progressed despitte maintenance therap. RT to multiple sites. Liver mets treated with chemoembolization in august 22. Due for opposite lobe chemoembolization 09/26 Code(s): C7A.8 - OTHER MALIGNANT NEUROENDOCRINE TUMORS; C7B.8 - OTHER SECONDARY NEUROENDOCRINE TUMORS (8) Thrombocytopenia Assessment/Plan: due to therapy Code(s): D69.6 - THROMBOCYTOPENIA, UNSPECIFIED (9) Constipation Code(s): K59.00 - CONSTIPATION, UNSPECIFIED (10) Liver metastases Assessment/Plan: Had chemo-embolization one lobe one month earlier. Due for second lobe september 26. Code(s): C78.7 - SECONDARY MALIG NEOPLASM OF LIVER AND INTRAHEPATIC BILE DUCT (11) Lung infiltrate Assessment/Plan: RLL consolidation Suggest CT. Antibiotic therapy/I.D> Code(s): R91.8 - OTHER NONSPECIFIC ABNORMAL FINDING OF LUNG FIELD Assessment/Plan See notes Replete electrolytes. IV hydration CT chest - I.D. -- ? empiric antibiotcs. Return to Dr. Lind --Due for liver chemoembolization on Tuesday.
[2017-09-22] MEDS: POLYETHYLENE GLYCOL 3350 119 GM BTL PO SCH (21:16)
[2017-09-22] MEDS: DOCUSATE SODIUM 100 MG CAPSULE (FP) PO SCH (21:16)
[2017-09-22] MEDS: CYCLOBENZAPRINE HCL 10 MG TABLET (FP) PO PRN (21:32)
[2017-09-23] MEDS ORDERED: ceFAZolin SODIUM 1 GM VIAL ONE ×3 (00:07→17:42)
[2017-09-23] MEDS ORDERED: DEXTROSE 5%-WATER - 50 ML IVPB ONE ×3 (00:07→17:42)
[2017-09-23] MEDS: CEFAZOLIN 1 GM in DEXTROSE 5%-WATER - 50 ML IVPB SCH ×3 (01:34→17:47)
[2017-09-23] MEDS: DOCUSATE SODIUM 100 MG CAPSULE (FP) PO SCH ×3 (06:21→23:02)
[2017-09-23] MEDS: INSULIN SLIDING SCALE (NOVOLOG) 1 VIAL SQ SCH ×3 (06:24→18:02)
[2017-09-23] MEDS ORDERED: MINERAL OIL ENEMA 133 ML ENEMA PR ONE (08:56)
--- NOTE | 2017-09-23 08:56 | PN ---
Progress Note, Physician Chief Complaint: Feels better History of Present Illness: Dr Crowder consult appreciated - Current Medication List Current Medications: Active Medications Cyclobenzaprine HCl (Flexeril -) 10 mg PO TID PRN PRN Reason: MUSCLE SPASMS Last Admin: 09/22/17 21:32 Dose: 10 mg Docusate Sodium (Colace -) 100 mg PO TID [facility] Last Admin: 09/23/17 06:21 Dose: 100 mg Enoxaparin Sodium (Lovenox -) 30 mg SQ BID [facility] Last Admin: 09/22/17 21:14 Dose: 30 mg Cefazolin Sodium 1 gm/ (Dextrose) 50 mls @ 100 mls/hr IVPB Q8H-IV [facility] Last Admin: 09/23/17 01:34 Dose: 100 mls/hr Insulin Aspart (Novolog Vial Sliding Scale -) 1 vial SQ TIDAC [facility]; Protocol Last Admin: 09/23/17 06:24 Dose: Not Given Morphine Sulfate (Morphine Sulfate) 2 mg IVPUSH Q4H PRN PRN Reason: PAIN LEVEL 6-10 Oxycodone HCl (Roxicodone -) 5 mg PO Q6H PRN PRN Reason: PAIN LEVEL 6-10 Polyethylene Glycol (Miralax (For Daily Use) -) 17 gm PO DAILY [facility] Last Admin: 09/22/17 21:16 Dose: 17 gm Potassium Chloride (Potassium Chloride Oral Liquid) 40 meq PO BID [facility] Last Admin: 09/22/17 21:16 Dose: 40 meq - Objective Vital Signs: Vital Signs Temperature 98.5 F 09/23/17 06:00 Pulse Rate 113 H 09/23/17 06:00 Respiratory Rate 18 09/23/17 06:00 Blood Pressure 141/97 09/23/17 06:00 O2 Sat by Pulse Oximetry (%) 100 09/22/17 09:00 Constitutional: Yes: Moderate Distress Eyes: Yes: WNL HENT: Yes: WNL Neck: Yes: WNL Cardiovascular: Yes: Regular Rate and Rhythm Respiratory: Yes: Regular Gastrointestinal: Yes: Normal Bowel Sounds ...Rectal Exam: Yes: Deferred Genitourinary: Yes: WNL Breast(s): Yes: WNL Musculoskeletal: Yes: Muscle Weakness Edema: No Integumentary: Yes: WNL Neurological: Yes: Alert Psychiatric: Yes: Alert Labs: CBC, BMP 09/21/17 19:30 09/22/17 10:00 INR, PTT INR 1.28 (0.82-1.09) H 09/21/17 19:30 Assessment/Plan PT for ambulation Fleets enema Paxil for depression
--- NOTE | 2017-09-23 09:36 | HP ---
DATE OF ADMISSION: 09/21/2017 HISTORY OF PRESENT ILLNESS: This is a 67-year-old male well known to me who came to the emergency room with pain, left leg, no relief, so got admitted. He is also known to have neuroendocrine osteitic CA with distant metastases. Chest x-ray showed right lower lobe pneumonia. Patient is in severe pain. PHYSICAL EXAMINATION: Vital signs: BP 130/80, pulse 72, respirations 20, temperature 99. HEENT: Unremarkable. Neck: Supple. No JVD. Lungs: Clear. Heart: S1, S2 normal. No S3, S4. Abdomen: Soft. Range of motion restricted. Extremities: Legs no edema. Neurological: Examination grossly normal. LABORATORY: Electrolytes significant for hypokalemia. CBC: WBC 4.5, hemoglobin 10.5, platelets 52. Chest x-ray right lower lobe pneumonia. Venous Doppler study negative for DVT. IMPRESSION: 1. Pneumonia, right lower lobe. 2. Distant metastatic cyst of endocrine tumor. 3. Hypokalemia. PLAN: IV potassium. Continue his other medications. IV antibiotics started. Will follow. Roya [id number]
[2017-09-23] MEDS: POTASSIUM CHLORIDE ORAL LIQUID 20 MEQ/15 ML PO SCH ×2 (09:47→23:02)
[2017-09-23] MEDS: ENOXAPARIN NA (PORCINE) 30 MG/0.3 ML DISP.SYRIN SQ SCH ×2 (09:48→23:02)
[2017-09-23] MEDS ORDERED: INSULIN (NOVOLOG) ASPART 100 UNITS/ML 10ML VIAL ONE (12:26)
[2017-09-23] MEDS: POLYETHYLENE GLYCOL 3350 119 GM BTL PO SCH (12:37)
[2017-09-23] MEDS ORDERED: PT OWN MED DRAWER 7, Y5N ONE (12:47)
[2017-09-23] MEDS: PARoxetine HCL 10 MG TABLET (FP) PO SCH (17:46)
[2017-09-24] MEDS ORDERED: DEXTROSE 5%-WATER - 50 ML IVPB ONE ×3 (01:48→17:35)
[2017-09-24] MEDS ORDERED: ceFAZolin SODIUM 1 GM VIAL ONE ×3 (01:48→17:35)
[2017-09-24] MEDS: CEFAZOLIN 1 GM in DEXTROSE 5%-WATER - 50 ML IVPB SCH ×3 (02:16→17:43)
[2017-09-24] MEDS: INSULIN SLIDING SCALE (NOVOLOG) 1 VIAL SQ SCH ×3 (06:32→17:43)
[2017-09-24] MEDS: DOCUSATE SODIUM 100 MG CAPSULE (FP) PO SCH ×3 (06:32→21:59)
[2017-09-24 07:01] LABS: HEMATOCRIT 29.1 % (35.4-49); HEMOGLOBIN 10.6 GM/dL (11.7-16.9); MCH 37.1 pg (25.7-33.7); MCHC 36.3 g/dl (32.0-35.9); MEAN PLT VOLUME 9.4 fl (7.5-11.1); PLATELET COUNT 38 K/MM3 (134-434); RBC 2.85 M/mm3 (4.00-5.60); RDW 18.6 % (11.9-15.9); WHITE BLOOD COUNT 4.5 K/mm3 (4.0-10.0)
[2017-09-24 07:25] LABS: ALBUMIN 2.6 g/dl (3.4-5.0); ANION GAP 7 (8-16); BLOOD UREA NITROGEN 17 mg/dL (7-18); CHLORIDE 100 mmol/L (98-107); CO2 35 mmol/L (21-32); CREATININE 0.4 mg/dL (0.7-1.3); GLUCOSE,RANDOM 151 mg/dL (74-106); SGOT/AST 126 U/L (15-37); SGPT/ALT 107 U/L (12-78); SODIUM 142 mmol/L (136-145)
[2017-09-24 07:34] LABS: ALK PHOS 182 U/L (45-117); BILIRUBIN,TOTAL 1.1 mg/dL (0.2-1.0); TOT PROT 5.2 g/dl (6.4-8.2)
[2017-09-24 07:58] LABS: CALCIUM 6.8 mg/dL (8.5-10.1); POTASSIUM 2.4 mmol/L (3.5-5.1)
[2017-09-24] MEDS ORDERED: PT OWN MED DRAWER 7, Y5N ONE ×2 (09:17→09:23)
[2017-09-24] MEDS: ENOXAPARIN NA (PORCINE) 30 MG/0.3 ML DISP.SYRIN SQ SCH (09:20)
[2017-09-24] MEDS: POTASSIUM CHLORIDE ORAL LIQUID 20 MEQ/15 ML PO SCH ×2 (09:21→17:44)
[2017-09-24] MEDS: POTASSIUM CHLORIDE IVPB SCH ×3 (09:30→15:14)
[2017-09-24] MEDS: SODIUM CHLORIDE IVPB SCH ×3 (09:30→15:14)
[2017-09-24] MEDS: POLYETHYLENE GLYCOL 3350 119 GM BTL PO SCH (09:48)
[2017-09-24] MEDS: PARoxetine HCL 10 MG TABLET (FP) PO SCH (11:18)
[2017-09-24] MEDS ORDERED: CALCIUM GLUCONATE 10% - 1,000 MG/10 ML VIAL IVPB ONE (13:00)
[2017-09-24] MEDS: METOPROLOL TARTRATE 25 MG TABLET (FP) PO SCH (15:14)
[2017-09-24] MEDS ORDERED: INSULIN (NOVOLOG) ASPART 100 UNITS/ML 10ML VIAL ONE (18:01)
--- NOTE | 2017-09-24 20:16 | PN ---
Progress Note (short form) - Note Progress Note: Patient seen and examined 09/23 and 09/24 Denies any complaints Last Vital Signs Temp Pulse Resp BP Pulse Ox 97.3 F L 116 H 18 151/106 98 09/24/17 17:19 09/24/17 17:19 09/24/17 17:19 09/24/17 17:19 09/24/17 09:00 Cor: RSR, No murmurs, No gallops Lungs: Clear to P&A Abd: Soft, Normal bowel sounds, No organomegaly Ext:No significant edema Abnormal Lab Results 09/24/17 09/24/17 06:30 06:30 RBC 2.85 L Hgb 10.6 L Hct 29.1 L MCV 102.0 H MCH 37.1 H MCHC 36.3 H RDW 18.6 H Plt Count 38 L D Potassium 2.4 L* Carbon Dioxide 35 H Anion Gap 7 L Creatinine 0.4 L Random Glucose 151 H Calcium 6.8 L* Total Bilirubin 1.1 H AST 126 H D ALT 107 H Alkaline Phosphatase 182 H Total Protein 5.2 L Albumin 2.6 L TSH 0.03 L Active Medications Generic Name Dose Route Start Last Admin Trade Name Freq PRN Reason Stop Dose Admin Cyclobenzaprine HCl 10 mg 09/22/17 09:16 09/22/17 21:32 Flexeril - PO 10 mg TID PRN Administration MUSCLE SPASMS Docusate Sodium 100 mg 09/22/17 22:00 09/24/17 15:14 Colace - PO 100 mg TID KEHINDE Administration Cefazolin Sodium 1 gm/ 50 mls @ 100 mls/hr 09/22/17 10:15 09/24/17 17:43 Dextrose IVPB 100 mls/hr Q8H-IV KEHINDE Administration Insulin Aspart 1 vial 09/22/17 14:15 09/24/17 17:43 Novolog Vial Sliding Scale - SQ 6 units TIDAC KEHINDE Administration Protocol Metoprolol Tartrate 25 mg 09/24/17 15:15 09/24/17 15:14 Lopressor - PO 25 mg DAILY KEHINDE Administration Morphine Sulfate 2 mg 09/22/17 10:49 Morphine Sulfate IVPUSH Q4H PRN PAIN LEVEL 6-10 Oxycodone HCl 5 mg 09/22/17 10:50 Roxicodone - PO Q6H PRN PAIN LEVEL 6-10 Paroxetine HCl 10 mg 09/23/17 11:45 09/24/17 11:18 Paxil - PO 10 mg DAILY KEHINDE Administration Polyethylene Glycol 17 gm 09/22/17 20:15 09/24/17 09:48 Miralax (For Daily Use) - PO 17 gm DAILY KEHINDE Administration Potassium Chloride 40 meq 09/24/17 18:00 09/24/17 17:44 Potassium Chloride Oral Liquid PO 40 meq Q6HPO KEHINDE Administration A/P 67 y/o patient with h/o prostate cancer S/P prostatectomy Treated with taxotere chemotherapy and hormonal therapy PSA currently <1 Unfortunately , incontinent post prostatectomy h/o Neuroendocrine carcinoma metastatic to liver High grade neuroendocrine tumor treated wirh Cis tazlina and [employer]-16 therapy . Progressed despite maintenance therapy RT to multiple sites. Liver mets treated with chemoembolization on 08/22 Due for opposite lobe chemoembolization 09/26 Replete electrolytes--potasium IV hydration Thrombocytopenia-- check blood cultures, u/a, urine cultures Monitor Transfuse if bleeding or <[id number] Abnormal LFTs --? due to livermets/chemoemboliztion? monitor
[2017-09-24] MEDS ORDERED: METOPROLOL TARTRATE 25 MG TABLET (FP) PO ONE (21:00)
[2017-09-24] MEDS: CYCLOBENZAPRINE HCL 10 MG TABLET (FP) PO PRN (21:59)
[2017-09-25] MEDS: POTASSIUM CHLORIDE ORAL LIQUID 20 MEQ/15 ML PO SCH ×5 (00:45→21:48)
[2017-09-25] MEDS ORDERED: ceFAZolin SODIUM 1 GM VIAL ONE ×2 (01:30→09:36)
[2017-09-25] MEDS ORDERED: DEXTROSE 5%-WATER - 50 ML IVPB ONE ×2 (01:30→09:37)
[2017-09-25] MEDS: CEFAZOLIN 1 GM in DEXTROSE 5%-WATER - 50 ML IVPB SCH ×2 (02:45→09:46)
[2017-09-25] MEDS: DOCUSATE SODIUM 100 MG CAPSULE (FP) PO SCH ×3 (06:26→21:48)
[2017-09-25] MEDS: INSULIN SLIDING SCALE (NOVOLOG) 1 VIAL SQ SCH ×3 (06:28→17:48)
[2017-09-25 08:06] LABS: BASO % 0.6 % (0-2.0); HEMATOCRIT 30.8 % (35.4-49); LYMPH % 6.8 % (8-40); MCH 36.8 pg (25.7-33.7); MCHC 35.6 g/dl (32.0-35.9); MEAN CELL VOLUME 103.4 fl (80-96); MEAN PLT VOLUME 10.1 fl (7.5-11.1); MONO % 3.4 % (3.8-10.2); NEUT % 89.2 % (42.8-82.8); RBC 2.98 M/mm3 (4.00-5.60); RDW 18.7 % (11.9-15.9); WHITE BLOOD COUNT 4.7 K/mm3 (4.0-10.0)
[2017-09-25 08:14] LABS: PLATELET COUNT 35 K/MM3 (134-434)
[2017-09-25 08:32] LABS: CHLORIDE 105 mmol/L (98-107); POTASSIUM 3.9 mmol/L (3.5-5.1); SODIUM 144 mmol/L (136-145)
[2017-09-25 08:39] LABS: ALBUMIN 2.7 g/dl (3.4-5.0); ALK PHOS 200 U/L (45-117); ANION GAP 8 (8-16); BILIRUBIN,TOTAL 1.2 mg/dL (0.2-1.0); BLOOD UREA NITROGEN 17 mg/dL (7-18); CO2 31 mmol/L (21-32); CREATININE 0.5 mg/dL (0.7-1.3); GLUCOSE,RANDOM 224 mg/dL (74-106); SGOT/AST 144 U/L (15-37); SGPT/ALT 98 U/L (12-78); TOT PROT 5.4 g/dl (6.4-8.2)
[2017-09-25 08:42] LABS: CALCIUM 6.9 mg/dL (8.5-10.1)
[2017-09-25 08:55] LABS: INR 1.22 (0.82-1.09); PROTHROMBIN TIME (PATIENT) 13.8 SEC (9.7-13.0)
[2017-09-25 09:13] LABS: LDH 2643 U/L (87-241)
[2017-09-25] MEDS: PARoxetine HCL 10 MG TABLET (FP) PO SCH (09:46)
[2017-09-25] MEDS: METOPROLOL TARTRATE 25 MG TABLET (FP) PO SCH (09:46)
[2017-09-25] MEDS: POLYETHYLENE GLYCOL 3350 119 GM BTL PO SCH (12:06)
--- NOTE | 2017-09-25 12:12 | PN ---
Progress Note, Physician Chief Complaint: Feels much better History of Present Illness: Dr Cordero,s follow up note noted - Current Medication List Current Medications: Active Medications Cyclobenzaprine HCl (Flexeril -) 10 mg PO TID PRN PRN Reason: MUSCLE SPASMS Last Admin: 09/24/17 21:59 Dose: 10 mg Docusate Sodium (Colace -) 100 mg PO TID [facility] Last Admin: 09/25/17 06:26 Dose: 100 mg Insulin Aspart (Novolog Vial Sliding Scale -) 1 vial SQ TIDAC [facility]; Protocol Last Admin: 09/25/17 06:28 Dose: 6 units Metoprolol Tartrate (Lopressor -) 25 mg PO DAILY [facility] Last Admin: 09/25/17 09:46 Dose: 25 mg Paroxetine HCl (Paxil -) 10 mg PO DAILY [facility] Last Admin: 09/25/17 09:46 Dose: 10 mg Polyethylene Glycol (Miralax (For Daily Use) -) 17 gm PO DAILY [facility] Last Admin: 09/25/17 12:06 Dose: Not Given Potassium Chloride (Potassium Chloride Oral Liquid) 40 meq PO Q6HPO [facility] Last Admin: 09/25/17 06:24 Dose: 40 meq - Objective Vital Signs: Vital Signs Temperature 97.6 F 09/25/17 06:36 Pulse Rate 107 H 09/25/17 06:36 Respiratory Rate 18 09/25/17 06:36 Blood Pressure 154/108 09/25/17 06:36 O2 Sat by Pulse Oximetry (%) 98 09/24/17 21:00 Constitutional: Yes: No Distress Eyes: Yes: WNL HENT: Yes: WNL, Other Neck: Yes: Tenderness Respiratory: Yes: WNL ...Rectal Exam: Yes: Deferred Genitourinary: Yes: WNL Musculoskeletal: Yes: Muscle Weakness Edema: No Integumentary: Yes: WNL Psychiatric: Yes: Alert Labs: CBC, BMP 09/25/17 06:15 09/25/17 06:15 INR, PTT INR 1.22 (0.82-1.09) H 09/25/17 06:15 Fibrinogen 226.0 mg/dL (238-498) L 09/25/17 06:15 Assessment/Plan Calcium gluconate IV Manissium PO
[2017-09-25] MEDS ORDERED: INSULIN (NOVOLOG) ASPART 100 UNITS/ML 10ML VIAL ONE ×2 (12:19→17:46)
[2017-09-25] MEDS ORDERED: CALCIUM GLUCONATE 10% - 1,000 MG/10 ML VIAL IVPB ONE (12:30)
[2017-09-25] MEDS ORDERED: IBUPROFEN 400 MG TABLET (FP) PO PRN (13:04)
[2017-09-25] MEDS ORDERED: IBUPROFEN 400 MG TABLET (FP) PO ONE (13:15)
[2017-09-25 17:50] LABS: URINE APPEARANCE CLEAR; URINE BILIRUBIN NEGATIVE (<2.0 mg/dL); URINE COLOR YELLOW; URINE GLUCOSE (UA) 3+ (NEGATIVE); URINE KETONE NEGATIVE (NEGATIVE); URINE LEUK ESTERASE NEGATIVE (NEGATIVE); URINE NITRITE NEGATIVE (NEGATIVE)
[2017-09-25 17:56] LABS: URINE PROTEIN 2+ (NEGATIVE)
[2017-09-25 17:59] LABS: URINE HYALINE CAST 1 /lpf; URINE MUCUS RARE
[2017-09-25] MEDS: MAGNESIUM OXIDE 400 MG TABLET (FP) PO SCH (21:48)
[2017-09-25] MEDS: CYCLOBENZAPRINE HCL 10 MG TABLET (FP) PO PRN (21:48)
[2017-09-26] MEDS: DOCUSATE SODIUM 100 MG CAPSULE (FP) PO SCH ×2 (05:52→14:05)
[2017-09-26] MEDS: INSULIN SLIDING SCALE (NOVOLOG) 1 VIAL SQ SCH ×3 (06:01→17:02)
[2017-09-26 07:43] LABS: HEMATOCRIT 30.3 % (35.4-49); HEMOGLOBIN 10.9 GM/dL (11.7-16.9); MCH 36.9 pg (25.7-33.7); MCHC 36.1 g/dl (32.0-35.9); MEAN CELL VOLUME 102.2 fl (80-96); MEAN PLT VOLUME 10.9 fl (7.5-11.1); RBC 2.97 M/mm3 (4.00-5.60); RDW 18.5 % (11.9-15.9); WHITE BLOOD COUNT 4.3 K/mm3 (4.0-10.0)
[2017-09-26 07:49] LABS: PLATELET COUNT 33 K/MM3 (134-434)
[2017-09-26 08:11] LABS: ALBUMIN 2.7 g/dl (3.4-5.0); ALK PHOS 213 U/L (45-117); ANION GAP 10 (8-16); BILIRUBIN,TOTAL 1.3 mg/dL (0.2-1.0); BLOOD UREA NITROGEN 18 mg/dL (7-18); CALCIUM 7.1 mg/dL (8.5-10.1); CHLORIDE 103 mmol/L (98-107); CO2 31 mmol/L (21-32); CREATININE 0.4 mg/dL (0.7-1.3); GLUCOSE,RANDOM 180 mg/dL (74-106); SGOT/AST 177 U/L (15-37); SGPT/ALT 102 U/L (12-78); SODIUM 144 mmol/L (136-145); TOT PROT 5.2 g/dl (6.4-8.2)
[2017-09-26 08:32] LABS: POTASSIUM 2.9 mmol/L (3.5-5.1)
--- NOTE | 2017-09-26 08:47 | DS ---
Physical Examination Vital Signs: Vital Signs Temperature 97.5 F L 09/26/17 06:00 Pulse Rate 120 H 09/26/17 06:00 Respiratory Rate 18 09/26/17 06:00 Blood Pressure 157/105 09/26/17 06:00 O2 Sat by Pulse Oximetry (%) 96 09/25/17 21:00 Findings/Remarks: Nuroendocrine tumor with mets Admitted with intractable pain LLE and Lt LL infiltrate Also noted to have hypo calcimia hypokalemia Constitutional: Yes: Anxious Eyes: Yes: WNL HENT: Yes: WNL Neck: Yes: WNL Cardiovascular: Yes: WNL Respiratory: Yes: WNL Gastrointestinal: Yes: Normal Bowel Sounds ...Rectal Exam: Yes: Deferred Renal/: Yes: WNL Musculoskeletal: Yes: Muscle Weakness Edema: No Neurological: Yes: Alert Psychiatric: Yes: Alert Labs: CBC, BMP 09/26/17 06:10 09/26/17 06:10 Discharge Summary Reason For Visit: PAIN OF LOWER LEFT EXTREMITY Current Active Problems Constipation (Acute) Dehydration (Acute) Hypokalemia (Acute) Hypomagnesemia (Acute) Leg pain, left (Acute) Liver metastases (Acute) Lung infiltrate (Acute) 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
[2017-09-26] MEDS ORDERED: PT OWN MED DRAWER 7, Y5N ONE (09:56)
[2017-09-26] MEDS: POTASSIUM CHLORIDE ORAL LIQUID 20 MEQ/15 ML PO SCH (09:58)
[2017-09-26] MEDS: MAGNESIUM OXIDE 400 MG TABLET (FP) PO SCH (09:58)
[2017-09-26] MEDS: METOPROLOL TARTRATE 25 MG TABLET (FP) PO SCH (09:58)
[2017-09-26] MEDS: PARoxetine HCL 10 MG TABLET (FP) PO SCH (09:58)
[2017-09-26] MEDS: POLYETHYLENE GLYCOL 3350 119 GM BTL PO SCH (10:05)
[2017-09-26] MEDS: POTASSIUM CHLORIDE 10 MEQ in SODIUM CHLORIDE 100 ML IVPB SCH ×3 (10:17→15:36)
[2017-09-26 17:08] VITALS: BP 164/115; PULSE 118; TEMP 97.4
[2017-09-26] MEDS ORDERED: POTASSIUM CHLORIDE TABS 20 MEQ TABLET.ER (FP) PO ONE (18:15)
== END 2017-09-26 18:28 | disposition home or self-care (01) | DRG 845 ==
LOC: JER 17:19 → JERBED 19:35 → J8W 23:12
PROVIDERS: ADMIT Internal Medicine; ATTEND Internal Medicine
DX: C7A.8 Other malignant neuroendocrine tumors (principal); D69.6 Thrombocytopenia, unspecified; C79.51 Secondary malignant neoplasm of bone; C78.00 Secondary malignant neoplasm of unspecified lung; C78.7 Secondary malignant neoplasm of liver and intrahepatic bile duct; C61 Malignant neoplasm of prostate; E83.51 Hypocalcemia; E86.0 Dehydration; E87.6 Hypokalemia; E83.42 Hypomagnesemia; R25.2 Cramp and spasm; K59.00 Constipation, unspecified; R94.5 Abnormal results of liver function studies; F32.9 Major depressive disorder, single episode, unspecified; F41.9 Anxiety disorder, unspecified; R91.8 Other nonspecific abnormal finding of lung field
CPT/HCPCS: 36415; 71045-TC-FY; 71260-TC; 80053; 81003; 81015; 82550; 82553; 82607; 82962; 83615; 83735; 84443; 84484; 85025; 85027; 85384; 85610; 85730; 86022; 87040; 87086; 93005; 93010; 93970-TC; 97116-GP; 97161-GP; 99282-25; J0131; J7030